=== PATIENT | female | born 2000 | race Caucasian/White ===

== ENCOUNTER 2022-01-06 02:41 | Emergency (ER) | payer SELFPAY ==
[~2022-01-06] VITALS: Ht 154.9 cm; Wt 47.6 kg
[2022-01-06 02:47] VITALS: BP 125/77
[2022-01-06] MEDS: NACL 0.9% 1,000 ML IV ONE (02:58)
[2022-01-06] MEDS: ONDANSETRON 4 MG/2 ML VIAL IVP ONE (02:58)
[2022-01-06 06:13] VITALS: BP 128/65
== END 2022-01-06 05:48 | disposition home or self-care (01) ==
LOC: MED 02:41
DX: F10.129 Alcohol abuse with intoxication, unspecified (principal); R10.13 Epigastric pain; F12.10 Cannabis abuse, uncomplicated; Y90.9 Presence of alcohol in blood, level not specified
CPT/HCPCS: 96361; 96374; 99283; J2405